=== PATIENT | female | born 1995 | race Caucasian/White ===

== ENCOUNTER → 2019-02-10 | Outpatient (CLI) | payer BC ==
[~2019-02-10] MED LIST: RITALIN LA10 MG PO
== END ==
LOC: COL.RAD 09:42
DX: K80.20 Calculus of gallbladder without cholecystitis without obstruction (principal)

== ENCOUNTER 2022-04-16 09:03 | Inpatient (IN) | payer BC ==
[~2022-04-16] VITALS: Ht 165.1 cm; Wt 79.5 kg
[2022-04-16] VITALS (26 sets, daily range): BP systolic 100–164; BP diastolic 52–104; PULSE 61–122; TEMP 97.6–98.3
[2022-04-16] MEDS ORDERED: PRENATAL TABLET (09:33)
[2022-04-16 09:49] LABS: BASO % 0.4 % (0.0-2.0); EOS # 0.1 K/mm3 (0.0-0.7); GRAN # 7.7 K/mm3 (1.4-6.5); GRAN % 71.3 % (42.2-75.2); HEMATOCRIT 36.6 % (37.0-47.0); HEMOGLOBIN 11.5 g/dl (12.5-16.0); LYMPH # 2.4 K/mm3 (1.2-3.4); MEAN CELL VOLUME 85 fl (80.0-100.0); MEAN CORPUSCULAR HEMOGLOBIN 27 pg (27-31); MEAN CORPUSCULAR HGB CONC 31 g/dl (33.0-37.0); MEAN PLATELET VOLUME 10.1 fl (7.4-10.4); MONO # 0.5 K/mm3 (0.1-0.6); MONO % 4.7 % (1.7-9.3); PLATELET COUNT 275 K/mm3 (130-400); RED BLOOD COUNT 4.31 M/mm3 (4.10-5.30); REDCELL DISTRIBUTION WIDTH-CV 13.8 % (11.5-14.5)
--- NOTE | 2022-04-16 11:10 | NUR ---
0858 - 26 YO AT 38.5WKS GESTATION TO LR 4 WITH C/O CTXS THAT STARTED AT 0530 THIS AM AND SROM OF CLEAR FLUID AT 0830, PT EXTREMELY UNCOMFORTABLE WITH CTXS, EFM PLACED
--- NOTE | 2022-04-16 11:31 | NUR ---
PT STANDING ON SIDE OF BED BREATHING THRU CTXS 0953 - ELEAZAR CHÁVEZ HEAD BAKER TO ROOM FOR EPIDURAL, SITTING ON SIDE OF BED FOR EPIDURAL PLACEMENT 0956 - SINGLE SHOT
--- NOTE | 2022-04-16 11:38 | NUR ---
ATTEMPT TO PLACE INGRAM CATHETER, UNABLE TO PASS CATHETER
--- NOTE | 2022-04-16 15:57 | NUR ---
1205 - SVE DONE, HEAD +1, INSTRUCTED PT ON PUSHING TECHNIQUES, PUSHING WITH CTXS INITIATED, RN REMAINS AT BEDSIDE, COACHING PT ON PUSHING AND MONITORING STATUS
--- NOTE | 2022-04-16 16:04 | NUR ---
PUSHING WITH CTXS, RN REMAINS A BEDSIDE COACHING PT ON PUSHING AND MONITORING STATUS
--- NOTE | 2022-04-16 16:08 | NUR ---
PUSHING WITH CTXS, RN REMAINS AT BEDSIDE COACHING PT ON PUSHING AND MONITORING STATUS
--- NOTE | 2022-04-16 16:24 | NUR ---
RN REMAINS AT BEDSIDE COACHING PT ON PUSHING AND MONITORING STATUS, DR LOPEZ TO ROOM TO CHECK STATUS, HE REMAINS IN DEPARTMENT WHILE PT IS PUSHING
--- NOTE | 2022-04-16 16:29 | NUR ---
RN REMAINS AT BEDSIDE PUSHING WITH PT AND MONITORING STATUS, PT PUSHING ON LEFT SIDE, DECENT WITH PUSHING EFFORTS
--- NOTE | 2022-04-16 16:35 | NUR ---
RN REMAINS AT BEDSIDE COACHING PT ON PUSHING AND MONITORING STATUS, PUSHING ON RIGHT SIDE
--- NOTE | 2022-04-16 16:40 | NUR ---
RN REMAINS AT BEDSIDE COACHING PT ON PUSHING AND MONITORING STATUS, DECENT WITH PUSHING EFFORTS, DR LOPEZ IN TO CHECK ON STATUS. IV PCN G INFUSING IVPB
--- NOTE | 2022-04-16 16:46 | NUR ---
RN REMAINS AT BEDSIDE COACHING PT ON PUSHING AND MONITORING STATUS. PT BECOMING EXHAUSTED, DR LOPEZ NOTIFIED PT EXHAUSTED. DR LOPEZ TO ROOM TO TALK TO PT ABOUT OPTIONS
--- NOTE | 2022-04-16 16:59 | NUR ---
1421 - DR LOPEZ TO ROOM, SPEAKS WITH PT AND ABOUT APPLYING VACUUM, PT STATES THAT SHE IS EXHAUSTED AND READY TO BE DONE. 1422 - LABOR ROOM CONVERTED TO DELIVERY ROOM, PT'S FEET UP IN FOOT PEDALS, PERINUEM WASH BY DR LOPEZ PT PUSHING WITH CTXS 1427 - VACUUM APPLIED TO HEAD BY DR LOPEZ, PT PUSHING WITH CTXS 1428 - PUSHING WITH CTXS, WITH VACUUM ASSIST BY DR LOPEZ 1429 - DELIVERY OF VIABLE MALE INFANT WITH VACUUM ASSIST X2 CTXS, NO POP-OFFS. TO MOTHERS ABD, DRIED AND STIMULATED WITH GOOD RESPONSE, CORD CUT BY FATHER
--- NOTE | 2022-04-16 17:18 | NUR ---
DR LOPEZ REPAIRING LACERATION
--- NOTE | 2022-04-16 17:30 | NUR ---
EPIDURAL CATHETER REMOVED, BLUE TIP INTACT, SITE WITHOUT REDNESS OR EDEMA UP TO BATHROOM, VOIDS WITHOUT DIFFICULTY, PADS CHANGED AND ISSAC CARE PROVIDED, NEW ICEPACK ON. TOLERATES BEING UP WELL
--- NOTE | 2022-04-16 17:33 | NUR ---
AMBULATES TO ROOM 216 WITH , TOLERATES BEING UP WELL
[2022-04-17 00:30] VITALS: BP 102/66; PULSE 76; TEMP 98.1
[2022-04-17 04:26] VITALS: BP 105/71; PULSE 79; TEMP 97.9
[2022-04-17 06:37] LABS: HEMOGLOBIN 10.8 g/dl (12.5-16.0)
[2022-04-17 06:43] LABS: HEMATOCRIT 32.1 % (37.0-47.0)
[2022-04-17 08:30] VITALS: BP 117/71; PULSE 106; TEMP 98.2
--- NOTE | 2022-04-17 09:56 | NUR ---
Initial visit; Patient thanked Health And Safety Coordinator for offering her congratulations and God's blessings for the of her son. Health And Safety Coordinator thanked family for choosing [facility].
[2022-04-17 16:20] VITALS: BP 121/78; PULSE 98; TEMP 98.2
[2022-04-17 20:15] VITALS: BP 107/66; PULSE 75; TEMP 98.2
[2022-04-18 08:15] VITALS: BP 121/76; PULSE 89
[2022-04-18] MEDS ORDERED: IBU600 MG PO (08:27)
== END 2022-04-18 12:00 | disposition home or self-care (01) | DRG 807 ==
LOC: LDRO 09:03 → OB 09:31 → LDR 09:31 → OB 17:30
PROVIDERS: ADMIT Obstetrics & Gynecology
PROC: 10D07Z6 Extraction of Products of Conception, Vacuum, Via Natural or Artificial Opening (ICD-10-PCS; principal; 2022-04-16)
PROC: 0KQM0ZZ Repair Perineum Muscle, Open Approach (ICD-10-PCS; 2022-04-16)
DX: O99.824 Streptococcus B carrier state complicating childbirth (principal); Z37.0 Single live birth; O75.81 Maternal exhaustion complicating labor and delivery; Z3A.38 38 weeks gestation of pregnancy; F90.9 Attention-deficit hyperactivity disorder, unspecified type; O99.344 Other mental disorders complicating childbirth; O70.1 Second degree perineal laceration during delivery; Z67.91 Unspecified blood type, Rh negative; Z53.29 Procedure and treatment not carried out because of patient's decision for other reasons
CPT/HCPCS: J2540; J2795; J7120